=== PATIENT | male | born 1955 | race Caucasian/White ===

== ENCOUNTER 2021-03-04 12:18 | Emergency (ER) | payer BC ==
--- NOTE | 2021-03-04 12:45 | EDM.PDOC ---
ED HPI GENERAL MEDICAL PROBLEM - General Chief Complaint: ENT Problem Stated Complaint: NASAL PACKING Time Seen by Provider: 03/04/21 12:20 Source of Information: Reports: Patient History Limitations: Reports: No Limitations - History of Present Illness INITIAL COMMENTS - FREE TEXT/NARRATIVE: Patient presented to the ED because of left epistaxis which started yesterday. He had it 3 times yesterday and once today. He is taking aspirin and plavix due to an unknown cardiac condition. The pain is sharp,10/10, radiating to the rt buttock and thigh. There is no lost of bowel or bladder control. - Related Data Allergies Allergy/AdvReac Type Severity Reaction Status Date / Time bee venom protein (honey bee) Allergy Anaphylactic Verified 03/04/21 12:28 Shock Home Meds: Home Meds Aspirin [Adult Low Dose Aspirin EC] 81 mg PO DAILY 03/04/21 [History] Clopidogrel [Plavix] 75 mg PO DAILY 03/04/21 [History] atorvaSTATin [Lipitor] 40 mg PO BEDTIME 03/04/21 [History] ED ROS ENT - Review of Systems Review Of Systems: See Below Constitutional: Reports: No Symptoms HEENT: Reports: No Symptoms Respiratory: Reports: No Symptoms Cardiovascular: Reports: No Symptoms Endocrine: Reports: No Symptoms GI/Abdominal: Reports: No Symptoms : Reports: No Symptoms Musculoskeletal: Reports: Back Pain Skin: Reports: No Symptoms Neurological: Reports: No Symptoms Psychiatric: Reports: No Symptoms ED EXAM, ENT - Physical Exam Exam: See Below Exam Limited By: No Limitations General Appearance: Alert, No Apparent Distress Ears: Normal External Exam, Normal Canal, Hearing Grossly Normal, Normal TMs Nose: Normal Inspection, Normal Mucousa, Active Bleeding Mouth/Throat: Normal Inspection, Normal Gums, Normal Lips, Normal Oropharynx Head: Atraumatic, Normocephalic Neck: Normal Inspection, Supple, Non-Tender, Full Range of Motion Respiratory/Chest: No Respiratory Distress, Lungs Clear, Normal Breath Sounds, No Accessory Muscle Use, Chest Non-Tender Cardiovascular: Normal Peripheral Pulses, Regular Rate, Rhythm, No Edema, No Gallop, No JVD, No Murmur, No Rub GI/Abdominal: Normal Bowel Sounds, Soft, Non-Tender (Male) Exam: No Hernia, Normal Inspection, Normal Prostate Back: Normal Inspection, Full Range of Motion Extremities: Normal Inspection, Normal Range of Motion, Non-Tender Neurological: Alert, Oriented, CN II-XII Intact Course - Vital Signs Text/Narrative:: Rhinopack applied by ED physician Last Recorded V/S: Last Vital Signs Temp 36.8 C 03/04/21 12:18 Pulse 64 03/04/21 12:55 Resp 18 03/04/21 12:55 BP 187/93 H 03/04/21 12:18 Pulse Ox 98 03/04/21 12:55 Departure - Departure Time of Disposition: 12:45 Disposition: Home, Self-Care 01 Condition: Good Clinical Impression: Epistaxis - Discharge Information Instructions: Nosebleed, [id number] Referrals: Gurdeep Mtz MD [Primary Care Provider] - Forms: ED Department Discharge Additional Instructions: Please read discharge instructions on nasal bleed Open your mouth wide when you sneeze or cough Do not take you aspirin and plavix for 5 days until you are seen by your ENT Sepsis Event Note (ED) - Evaluation Sepsis Screening Result: No Definite Risk - Focused Exam Vital Signs: Vital Signs Temp Pulse Resp BP Pulse Ox 03/04/21 12:55 64 18 98 03/04/21 12:18 36.8 C 63 20 187/93 H 98
== END 2021-03-04 12:55 | disposition home or self-care (01) ==
LOC: FB.ED 12:18
DX: R04.0 Epistaxis (principal); Z91.030 Bee allergy status; Z79.82 Long term (current) use of aspirin; Z79.02 Long term (current) use of antithrombotics/antiplatelets
CPT/HCPCS: 99283

== ENCOUNTER 2025-05-23 23:49 | Emergency (ER) | payer OTHER ==
[2025-05-24] MEDS: hydrOXYzine HCl 50 MG/ML SDV IM ONE (00:35)
[2025-05-24] MEDS: HYDROmorphone 2 MG/ML SDV IM ONE (00:36)
== END 2025-05-24 01:10 ==
LOC: FB.ED 23:49
DX: S52.531A Colles' fracture of right radius, initial encounter for closed fracture (principal); S52.614A Nondisplaced fracture of right ulna styloid process, initial encounter for closed fracture; F17.200 Nicotine dependence, unspecified, uncomplicated; Z91.030 Bee allergy status; Z79.82 Long term (current) use of aspirin; V89.2XXA Person injured in unspecified motor-vehicle accident, traffic, initial encounter
CPT/HCPCS: 73110; 73130; 96372; 99284; J1171; J3410